=== PATIENT | male | born 1965 | race African-American/Black ===

== ENCOUNTER 2018-03-18 10:03 | Emergency (ER) | payer MEDICAID ==
[~2018-03-18] VITALS: Ht 175.3 cm; Wt 136.0 kg
[2018-03-18] MEDS ORDERED: IPRATROPIUM BROMIDE (0.02%) 0.5MG/2.5ML NEB HHN STA (11:27)
[2018-03-18] MEDS ORDERED: ALBUTEROL (0.083%) 2.5MG/3ML NEB HHN STA ×2 (11:27→15:12)
[2018-03-18] MEDS ORDERED: METHYLPREDNISOLONE SOD SUCC 125 MG/2 ML VIAL IV STA (11:27)
[2018-03-18 13:03] LABS: EOSINOPHILS % 4.5 % (0.0-5.0); HEMATOCRIT. 39.9 % (42.0-52.0); HEMOGLOBIN. 13.2 g/dL (14.0-18.0); LYMPHOCYTES % 26.6 % (20.0-50.0); MEAN CORPUSCULAR HEMOGLOBIN 28.4 pg (28.0-32.0); MEAN CORPUSCULAR VOLUME 85.9 fL (80.0-94.0); MEAN PLATELET VOLUME 8.4 fl (7.4-10.4); MONOCYTES % 8.7 % (2.0-8.0); NEUTROPHILS % 59.2 % (40.0-76.0); PLATELET 271 x1000/uL (130-400); RED BLOOD CELL COUNT 4.64 mill/uL (4.7-6.1); RED CELL DISTRIBUTION WIDTH 15.1 % (11.6-14.6)
[2018-03-18 13:04] LABS: CHLORIDE 103 mEq/L (98-107)
[2018-03-18 16:15] VITALS: BP 141/85
== END 2018-03-18 17:06 | disposition home or self-care (01) ==
LOC: ER 10:03
DX: J45.901 Unspecified asthma with (acute) exacerbation (principal)
CPT/HCPCS: 36415; 71045; 80053; 83880; 84484; 85025; 93005; 94640; 94644; 96374; 99285; J2930; J7611

== ENCOUNTER 2020-01-21 02:40 | Emergency (ER) | payer MEDICAID, OTHER ==
[~2020-01-21] VITALS: Ht 172.7 cm; Wt 127.0 kg
[2020-01-21 02:52] VITALS: BP 134/85
[2020-01-21] MEDS ORDERED: PREDNISONE 20MG TABLET PO ONE (04:00)
[2020-01-21] MEDS ORDERED: TRIAMCINOLONE ACETONIDE 0.025% CREAM 15GM TOP SCH (04:00)
== END 2020-01-21 04:38 | disposition home or self-care (01) ==
LOC: ER 02:40
DX: T65.6X1A Toxic effect of paints and dyes, not elsewhere classified, accidental (unintentional), initial encounter (principal); L23.4 Allergic contact dermatitis due to dyes; Y92.031 Bathroom in apartment as the place of occurrence of the external cause
CPT/HCPCS: 99283; J7512

== ENCOUNTER 2020-07-22 12:45 | Emergency (ER) | payer OTHER ==
[~2020-07-22] VITALS: Ht 172.7 cm; Wt 136.0 kg
[2020-07-22 12:46] VITALS: BP 142/80
== END 2020-07-22 14:03 | disposition home or self-care (01) ==
LOC: ER 12:45
DX: S93.691A Other sprain of right foot, initial encounter (principal); W20.8XXA Other cause of strike by thrown, projected or falling object, initial encounter; Y93.89 Activity, other specified; Y92.89 Other specified places as the place of occurrence of the external cause
CPT/HCPCS: 73630; 99283

== ENCOUNTER 2020-08-16 11:47 | Emergency (ER) | payer OTHER ==
[~2020-08-16] VITALS: Ht 185.4 cm; Wt 88.0 kg
[2020-08-16] MEDS ORDERED: KETOROLAC 30MG/ML VIAL IM ONE (12:45)
[2020-08-16] MEDS ORDERED: NAPR-681 MT (13:38)
[2020-08-16 14:05] VITALS: BP 163/82
== END 2020-08-16 14:15 | disposition home or self-care (01) ==
LOC: ER 11:47
DX: M25.511 Pain in right shoulder (principal); M54.5 Low back pain; X50.0XXA Overexertion from strenuous movement or load, initial encounter; Y93.89 Activity, other specified; Y92.89 Other specified places as the place of occurrence of the external cause; Y99.0 Civilian activity done for income or pay
CPT/HCPCS: 73030; 96372; 99283; J1885

== ENCOUNTER 2022-06-22 06:19 | Emergency (ER) | payer OTHER ==
[~2022-06-22] VITALS: Ht 175.3 cm; Wt 124.6 kg
[~2022-06-22 06:19] MED LIST: NAPR-681 MT
[2022-06-22 06:35] VITALS: BP 172/87
[2022-06-22] MEDS ORDERED: IPRATROPIUM BROMIDE (0.02%) 0.5MG/2.5ML NEB HHN STA (08:05)
[2022-06-22] MEDS ORDERED: PREDNISONE 20MG TABLET PO STA (08:05)
[2022-06-22] MEDS ORDERED: ALBUTEROL (0.083%) 2.5MG/3ML NEB HHN STA (08:05)
[2022-06-22 09:04] LABS: BASOPHILS % 0.8 % (0.0-2.0); EOSINOPHILS % 4.7 % (0.0-5.0); HEMATOCRIT. 40.8 % (42.0-52.0); HEMOGLOBIN. 13.6 g/dL (14.0-18.0); LYMPHOCYTES % 27.8 % (20.0-50.0); MEAN CORPUSCULAR HEMOGLOBIN 28.6 pg (28.0-32.0); MEAN PLATELET VOLUME 8.1 fl (7.4-10.4); MONOCYTES % 8.2 % (2.0-8.0); NEUTROPHILS % 58.5 % (40.0-76.0); PLATELET 306 x1000/uL (130-400); RED BLOOD CELL COUNT 4.75 mill/uL (4.7-6.1); RED CELL DISTRIBUTION WIDTH 14.4 % (11.6-14.6)
[2022-06-22 09:43] LABS: CHLORIDE 103 mEq/L (98-107)
[2022-06-22] MEDS ORDERED: ALBU6.7H3 INH (10:30)
[2022-06-22] MEDS ORDERED: P50 PO (10:30)
== END 2022-06-22 10:49 | disposition home or self-care (01) ==
LOC: ER 06:19
DX: J45.901 Unspecified asthma with (acute) exacerbation (principal)
CPT/HCPCS: 36415; 71045; 80053; 83880; 84484; 85025; 93005; 99285